=== PATIENT | female | born 1980 | race Caucasian/White ===

== ENCOUNTER 2024-12-27 07:55 | Emergency (ER) | payer OTHER ==
[~2024-12-27] VITALS: Ht 170.2 cm; Wt 52.2 kg
[2024-12-27 08:01] VITALS: BP 124/86; TEMP 98.2
[2024-12-27] MEDS ORDERED: AMOX-427 PO (09:07)
[2024-12-27 09:10] VITALS: O2SAT 99
== END 2024-12-27 09:11 | disposition home or self-care (01) ==
LOC: ER 08:00
DX: S00.03XA Contusion of scalp, initial encounter (principal); K04.7 Periapical abscess without sinus; W18.2XXA Fall in (into) shower or empty bathtub, initial encounter; Y93.E1 Activity, personal bathing and showering; Y92.091 Bathroom in other non-institutional residence as the place of occurrence of the external cause; Y99.8 Other external cause status
CPT/HCPCS: 70450-TC

== ENCOUNTER 2025-02-11 02:14 | Emergency (ER) | payer OTHER ==
[~2025-02-11 02:14] MED LIST: AMOX-427 PO
== END 2025-02-11 02:39 | disposition left against medical advice (07) ==
LOC: ER 02:18
DX: Z53.21 Procedure and treatment not carried out due to patient leaving prior to being seen by health care provider (principal)